=== PATIENT | male | born 1950 | race Caucasian/White ===

== ENCOUNTER 2016-12-18 07:01 | Inpatient (IN) | payer MEDICARE ==
--- NOTE | 2016-12-15 11:25 | HP ---
PREOPERATIVE HISTORY AND PHYSICAL: DATE OF ADMISSION: 12/18/16 PROVIDER: Ammon Monroy MD CHIEF COMPLAINT: Right knee pain. HISTORY OF PRESENT ILLNESS: Mr. Perkins is a 66-year-old male who has had more and more troubles with his right knee. He has very specific patellofemoral arthrosis, where he has [id number] changes in the lateral facet. He states that he tried physical therapy initially, which worked very well as did his activity modification; however, they slowly had become less effective. He has tried to continue with an exercise program; however, he is not seeing any improvement. He also had an injection, which did not give him very long lasting relief. Because he has failed conservative treatment, he is interested in surgical correction of the problem at this point. PAST MEDICAL HISTORY: 1. Hypertension. 2. Atrial fibrillation. 3. Pituitary adenoma. 4. Gout. 5. Sleep apnea. 6. History of stroke. PAST SURGICAL HISTORY: Inguinal hernia repair. He reports no complications of anesthesia with any of these procedures. CURRENT MEDICATIONS: 1. Metoprolol tartrate 25 mg 1 p.o. every day. 2. Cardizem 120 mg 2 by mouth every day. 3. Aldactone 25 mg 1 by mouth 3 times a week. 4. Levitra 20 mg 1 tab by mouth as needed. 5. Potassium chloride ER 20 mEq 1 p.o. every day. 6. Pravastatin 10 mg 1 p.o. every day. 7. Cabergoline 0.5 mg 1 tab twice weekly. 8. Multivitamin 1 p.o. every day. 9. Vitamin D 400 units by mouth every day. 10. Warfarin 5 mg one and half tabs 2 days a week, 1 tab the remaining days of the week as directed by primary care doctor. 11. Allopurinol 100 mg 2 tabs p.o. every day. ALLERGIES: PENICILLIN, LEVAQUIN, and other QUINOLONES. FAMILY HISTORY: Positive for heart disease, but no diabetes or cancer. SOCIAL HISTORY: The patient is . He is a retired rn teacher. He is a former smoker. He occasionally consumes alcohol and he does exercise regularly. REVIEW OF SYSTEMS: Constitutional: Negative for headaches, lightheadedness, fevers, chills, or recent hospitalizations. Cardiovascular: Positive for high blood pressure. No chest or arm pain with exertion. No history of heart attack. No heart murmur. Positive for heart palpitations due to atrial fibrillation. Respiratory: Negative for chronic cough, shortness of breath, asthma, or COPD. Gastrointestinal: Negative for heartburn, nausea, vomiting, diarrhea, constipation, or GERD. Genitourinary: Positive for nighttime urination. No frequency, urinary tract infections, or kidney problems. Musculoskeletal: Negative for chronic back pain or recent fractures. Skin: Negative for rashes, lesions, lumps, or sores. Neurologic: Negative for history of seizure. Positive for TIA. Negative for epilepsy, depression, or anxiety. Endocrine: Negative for diabetes or thyroid problems. Hematology: Positive for easy bleeding due to the warfarin. Negative for anemia or history of DVT. PHYSICAL EXAMINATION GENERAL: He is a well-developed, well-nourished, pleasant male, in no acute distress at rest. He is alert and oriented x3, with appropriate mood and affect. VITAL SIGNS: The patient is 6 feet tall, 235 pounds, blood pressure 139/84, and pulse of 82. HEENT: Normocephalic, atraumatic. Hearing and vision are grossly intact. NECK: Trachea is midline. RESPIRATORY: Lungs clear to auscultation bilaterally. No wheezes, rales or rhonchi. CARDIOVASCULAR: Regular rate and rhythm. No murmurs, rubs, or gallops. Normal S1, S2. ABDOMEN: Soft, nondistended, and nontender. Normal bowel sounds. EXTREMITIES: Exam of the right knee, skin is intact without abrasions or open wounds. He has a moderate joint effusion. He has full extension of the knee with pain; however, he is only able to flex to about 100 degrees before he has patellofemoral pain. He has stable varus and valgus stress test. He has a positive patellar grind. Sensation to light touch is intact distally. He has 2 + dorsalis pedis pulse. IMPRESSION: Right knee patellofemoral osteoarthritis. PLAN/RECOMMENDATIONS: The patient is to undergo right knee patellofemoral arthroplasty by Dr. Monroy on 12/18/16. The risks, benefits, and postoperative course were discussed with the patient at length and he would like to proceed. He was advised by his primary care doctor to withhold his Coumadin 5 days prior to surgery. He was given a prescription for Percocet for postoperative pain and we will restart his Coumadin postoperatively as well. All of his questions were answered to his full satisfaction. He is understanding to call if he develops any problems or concerns. We will follow up with the patient in the postoperative phase. DENEEN GUO [id number]/[facility] #: [id number] REENA
[~2016-12-18 07:01] MED LIST: Buffered Lidocaine 1% SYR 3ML* 3 ML/SYR SYRINGE INTRADERM ONE; Clindamycin 900 MG IVPREMIX(* 900 MG/50 ML SDV IV ONE; Famotidine IV* 10 MG/ML 2 ML (20 mg) IV ONE; Famotidine IV* 10 MG/ML 2 ML (20 mg) ONE; Metoclopramide TAB* 10 MG ONE; Metoclopramide TAB* 10 MG PO ONE
[2016-12-18] MEDS ORDERED: Bupivacaine 0.25% EPI 200,000* 30 ML SDV ONE (07:48)
[2016-12-18] MEDS ORDERED: Dexamethasone IV* 4 MG/ML 1 ML (4 MG) ONE (07:59)
[2016-12-18] MEDS ORDERED: ROPIVACAINE 5 MG/ML 30 ML BTL (0.5%) ONE (07:59)
[2016-12-18] MEDS ORDERED: Propofol* 10 MG/ML 20 ML BTL IV PUSH ONE (07:59)
[2016-12-18] MEDS ORDERED: Lidocaine 2% PF * 5 ML VIAL ONE (07:59)
[2016-12-18] MEDS ORDERED: Ketorolac INJ* 30 MG/ML 1 ML VIAL ONE (07:59)
[2016-12-18] MEDS ORDERED: Ondansetron INJ* 2 MG/ML VIAL ONE (07:59)
[2016-12-18] MEDS ORDERED: Phenylephrine INJ* 10 MG/ML 1 ML VIAL (10 MG) ONE (07:59)
[2016-12-18] MEDS ORDERED: Midazolam* 1 MG/ML 5 ML VIAL (5 MG) ONE (08:00)
[2016-12-18] MEDS ORDERED: fentaNYL* 50 MCG/ML 5 ML VIAL (250 MCG VIAL) ONE (08:00)
[2016-12-18] MEDS ORDERED: KETAMINE HCL* 50 MG/ML 10 ML VIAL ONE (08:00)
[2016-12-18] MEDS ORDERED: Ondansetron INJ* 2 MG/ML VIAL IV PRN ×2 (10:51→11:52)
[2016-12-18] MEDS ORDERED: HYDROmorphone INJ* 1 MG/ML CARPUJECT SYRINGE IV PRN (10:51)
[2016-12-18] MEDS ORDERED: HYDROmorphone INJ* 1 MG/ML CARPUJECT SYRINGE ONE (11:17)
[2016-12-18] MEDS ORDERED: Ondansetron TAB* 4 MG PO PRN (11:52)
[2016-12-18] MEDS ORDERED: Polyethylene Glycol 3350* 17 GM PACKET PO PRN (11:52)
[2016-12-18] MEDS ORDERED: Bisacodyl SUPP* 10 MG SUPP PR PRN (11:52)
[2016-12-18] MEDS ORDERED: oxyCODONE/Acetamin 5/325 MG* TAB PO PRN (11:52)
[2016-12-18] MEDS ORDERED: diPHENhydraMINE IV* 50 MG/ML 1 ml VIAL (BENADRYL) IV PRN (11:52)
[2016-12-18] MEDS ORDERED: Acetaminophen TAB* 325 MG PO PRN (11:52)
[2016-12-18] MEDS ORDERED: oxyCODONE TAB* 5 MG TAB PO PRN (11:52)
[2016-12-18] MEDS ORDERED: Cabergoline [Cabergoline] 0.5 MG PO SCH (12:00)
[2016-12-18] MEDS ORDERED: fentaNYL* 50 MCG/ML 2 ML VIAL (100 MCG VIAL) ONE (12:38)
[2016-12-18] MEDS: fentaNYL* 50 MCG/ML 2 ML VIAL (100 MCG VIAL) IV PRN ×2 (12:47→12:59)
--- NOTE | 2016-12-18 13:05 | RAD ---
INDICATION: Patellofemoral arthroplasty COMPARISON: Right knee September 23, 2015 TECHNIQUE: A portable 2 view examination was performed obtained. FINDINGS: There is patellofemoral arthroplasty. There is no evidence of hardware failure. There are soft tissue changes compatible with recent surgery to include a joint effusion and anterior skin charisse. IMPRESSION: POSTOPERATIVE PATELLOFEMORAL ARTHROPLASTY
[2016-12-18] MEDS: Morphine INJ* 4 MG/ML 1 ML CARPUJECT IV PRN ×2 (14:34→18:57)
[2016-12-18] MEDS ORDERED: Clindamycin 600 MG IVPREMIX(* 600 MG/50 ML SDV IV SCH (15:00)
[2016-12-18] MEDS: oxyCODONE/Acetamin 5/325 MG* TAB PO PRN ×2 (15:38→19:31)
[2016-12-18] MEDS ORDERED: Warfarin TAB(*) 10 MG PO ONE ×2 (17:00)
[2016-12-18] MEDS ORDERED: Warfarin TAB(*) 2.5 MG PO ONE (17:00)
[2016-12-18] MEDS ORDERED: CMCS - Pravastatin (NF) 20 MG TAB PO SCH (17:00)
[2016-12-18] MEDS: Clindamycin 600 MG IVPREMIX(* 600 MG/50 ML SDV IV SCH (17:47)
--- NOTE | 2016-12-18 17:54 | PN ---
Hospitalist Progress Note HOSPITALIST ADDENDUM Case reviewed and d/w Javier BROTHERS. Mr. Perkins is a 66yo M with PMH of Afib, TIA, PASQUALE, admitted for elective right TKA. With his h/o TIA, needs bridging with Lovenox as soon as Ortho deems it safe. We will continue to follow with you.
--- NOTE | 2016-12-18 21:23 | CONS ---
MEDICAL CONSULTATION NOTE: DATE OF CONSULT: 12/18/16 REQUESTING PROVIDER: Dr. Monroy. CONSULTING PROVIDER: DENEEN Saini. SUPERVISING PHYSICIAN: Callie Butt MD. PRIMARY CARE PROVIDER: Dr. Mckeon. CHIEF COMPLAINT: Status post right total knee replacement with request for hospitalist consult for medical comanagement. HISTORY OF PRESENT ILLNESS: This is a 66-year-old gentleman who underwent right total knee replacement by Dr. Monroy earlier today. He has a history of chronic atrial fibrillation, a stable prolactinoma, history of gout, prior TIA, obstructive sleep apnea with which he is compliant with CPAP, as well as chronic kidney disease. Due to his medical comorbidities, Dr. Monroy requested medical comanagement by hospitalist group. The patient was seen by his primary care provider, Dr. Mckeon, prior to surgery. He had a stress test last completed April 2015, which was listed as a low risk study. He is typically rate controlled with metoprolol and diltiazem and anticoagulated with Coumadin. His Coumadin has been held for several days prior to surgery and his INR was approximately 1 this morning. The patient states that he is generally quite active at baseline, has had no recent illnesses. Postoperatively, he is having some pain at the surgical site. He is denying any chest pain or difficulty breathing. There is no abdominal pain, nausea, or vomiting. PAST MEDICAL HISTORY: 1. Chronic atrial fibrillation, anticoagulated on Coumadin and rate controlled. 2. 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 3. History of gout, on allopurinol. 4. History of TIA. 5. Obstructive sleep apnea, compliant with CPAP. 6. Stage 3 chronic kidney disease. PAST SURGICAL HISTORY: Inguinal hernia repair. HOME MEDICATIONS: 1. Allopurinol 100 mg p.o. daily. 2. Cabergoline 0.5 mg twice weekly on Wednesdays and Sundays. 3. Vitamin D 400 units p.o. daily. 4. Diltiazem CD 240 mg p.o. daily. 5. Metoprolol succinate 25 mg p.o. daily. 6. Multivitamin 1 tablet p.o. daily. 7. Potassium chloride 20 mEq p.o. daily. 8. Pravastatin 10 mg p.o. daily. 9. Spironolactone 25 mg p.o. daily as needed. 10. Levitra 20 mg p.o. 1 hour prior to intercourse. 11. Coumadin 12.5 mg p.o. daily. FAMILY HISTORY: The patient's father had a history of hypertension and mother had a history of coronary disease. SOCIAL HISTORY: The patient is a semi-retired teacher. He lives at home with his . He is a former smoker, previously used pipe and quit about 15 years ago. REVIEW OF SYSTEMS: As listed above in HPI and otherwise negative. PHYSICAL EXAM: Most recent vitals: Temperature 97.9 degrees Fahrenheit, pulse 74 beats per minute, respiratory rate 16 per minute, oxygen saturation 96% on 2 L, and blood pressure 135/98 mmHg. General: This is a very pleasant gentleman lying comfortably in the recovery area who is in no acute distress. He is slightly groggy postoperatively but able to answer all history questions appropriately and is alert and conversant. HEENT: Head is normocephalic and atraumatic with moist mucous membranes. Respiratory: Lungs are clear to auscultation without wheezes, crackles or rhonchi. . Cardiovascular: Slightly irregular rhythm. No murmurs, rubs, or gallops appreciated. Abdomen: Abdomen is soft and nontender to palpation. Extremities: Right knee is in a postsurgical dressing. No significant edema appreciated in either leg. Psych: The patient is alert and appropriately oriented. LABORATORY DATA: Reviewed preop labs from 12/08/16, which include a CBC and comprehensive metabolic panel. Preoperatively, he had a white blood cell count of 13,100, hemoglobin of 16 g/dL, and platelet count of 273,000. His preop creatinine was 1.29 with an estimated GFR of approximately 55 and a BUN of 16. INR from earlier today was 1.01. IMAGING: Chest x-ray from 12/08/16 showed no acute process or significant chronic disease. Stress testing from April 2015 was read as a low risk study. Telemetry - the patient appears to be in rate controlled atrial fibrillation in the PACU with the rate between 60 and 70 beats per minute. ASSESSMENT AND PLAN: This is a 66-year-old gentleman with chronic atrial fibrillation, pituitary adenoma, history of prior transient ischemic attack, gout, obstructive sleep apnea, and chronic kidney disease, who underwent elective right total knee replacement by Dr. Monroy earlier today. Hospitalist group has been consulted for medical comanagement. 1. Status post right total knee replacement - the patient is postoperative day [address] Monroy. Discharge planning and pain control will be per orthopedic surgery group. 2. Chronic atrial fibrillation - the patient is appropriately rate controlled and states that he did take his metoprolol and diltiazem earlier this morning. He is currently asymptomatic. He is chronically anticoagulated on Coumadin, which has been held and his INR is 1 prior to surgery. Plan is to resume his Coumadin this evening and monitor his INR daily. The patient does not require Lovenox bridging at this time. 3. Obstructive sleep apnea - the patient did bring his CPAP machine with him and will use that during his hospital stay. 4. Pituitary adenoma - normal prolactin, last measured in April, maintained on cabergoline and followed by Dr. Varner with stable size via imaging. 5. History of transient ischemic attack. 6. Chronic kidney disease - stage 3. Preop creatinine of 1.29 - recommend avoiding nephrotoxic agents and more specifically NSAIDs postoperatively. A repeat basic metabolic panel is ordered for tomorrow. 7. History of gout. Discontinue allopurinol. 8. Code status. The patient is full code. 9. Healthcare proxy is listed as his . 10. DVT prophylaxis - the patient is chronically anticoagulated with Coumadin and his typical Coumadin dose will be resumed with close monitoring of his INR. Additional prophylactic measures not necessary at this time. DISPOSITION: Hospitalist group will continue to follow along throughout the patient's hospital stay. Discharge planning per Orthopedic Surgery. DENEEN SAINI [id number]/[facility]PS #: [id number] REENA
[2016-12-18] MEDS: Magnesium Hydroxide LIQ* 30 ML UDC PO SCH (21:30)
[2016-12-18] MEDS: Docusate CAP* 100 MG PO SCH (21:42)
[2016-12-19] MEDS: oxyCODONE/Acetamin 5/325 MG* TAB PO PRN ×3 (00:16→13:54)
--- NOTE | 2016-12-19 02:26 | OP ---
DATE OF OPERATION: 12/18/16 - ROOM #348 DATE OF : 50 SURGEON: Ammon Monroy MD ELECTRONIC ORGAN TECHNICIAN: Ann-Marie Waggoner RPA ANESTHESIOLOGIST: González iVrk MD ANESTHESIA: General. PRE-OP DIAGNOSIS: Osteoarthritis, right patellofemoral joint. POST-OP DIAGNOSIS: Osteoarthritis, right patellofemoral joint. OPERATIVE PROCEDURE: Right patellofemoral joint arthroplasty. ESTIMATED BLOOD LOSS: Negligible. COMPLICATIONS: None. HARDWARE: Devendra #4 femur 38 mm patella. INDICATIONS: Mr. Perkins is a 66-year-old male who has had continued troubles with pain and swelling in his right knee. He had been treated conservatively with antiinflammatories, injections, but still had very specific pain about the knee. He has now been on anticoagulation and because of that the knee has become more painful and more limiting. He also has had gouty episodes with the knee and this has only added to the pain and troubles to the knee. By x-ray, there was good maintenance of the weightbearing surface of the knee joint and he was bone on bone in the patellofemoral joint. He also related most of his symptoms to going up and downstairs as well as about the patella. I discussed with him that a patello-femoral arthroplasty should work well to decrease his pain and improve his function. Risks of surgery such as infection, scar formation, stiffness, DVTs, pulmonary embolism, hardware failure, continued pain and a need for a revision surgery were some of the risks discussed. He had been declared medically optimized and wished to proceed. DESCRIPTION OF PROCEDURE: The patient was brought to the OR and general anesthesia was established. Tourniquet was placed over the proximal right thigh and was used during the case. Total tourniquet time would be approximately 45 minutes. Right knee was prepped and then draped. Skin over the incisional layer was infiltrated using 20 cc of 0.25% Marcaine with epinephrine and an Esmarch was then used to exsanguinate the leg. Tourniquet was raised. Incision was made centered about the patella carried about 2 to 3 cm above the patella and down to the medial side of the tibial tubercle. Incision was carried down to the skin and subcutaneous tissues. Extensor mechanism was exposed and a sharp peripatellar arthrotomy was made. Gush of clear yellowish joint fluid was encountered. Extensive wear on the patellofemoral joint was seen and the weightbearing surface actually appeared in relatively good shape. Knee was pulse lavaged to clean out some of the chondrocalcinosis, which were gout crystals, which was present and patella was then measured. He had worn down on the inner side to about 14 mm and was about 25 mm on the medial side. Patella cut was taken levelling out the patella. Fat pads were sharply excised and care was taken not to damage the meniscus or cruciate ligaments. Attention was turned to the proximal femur. Knee was flexed up a little bit and step drill was used to open the femoral canal. Intramedullary guide was placed and the alignment guide was placed and adjusted until appeared parallel with the epicondyles and this was pinned into place. Cutting height was then adjusted using the Feeler guide until the guide sat nicely and I thought we would take a nice cut right over the top side of the femur and it did not notch. Guide was then fully pinned into place and the Feeler guide was removed. I came along the top of the cutting guide first to make sure that I liked the cut and I did and then I came through the guide and it appeared a nice cut was taken. Cutting guide was removed and the cut was sized in a 4 seemed to sit very nicely right over the top side of the femur. This was then pinned into place and then the mill was run to resect the bone. Second guide was then placed and drill holes were made. Knee was copiously pulse lavaged and trial was placed. Attention was turned to the patella. Patella was sized and a 38 sat very nicely. Holes were drilled and 38 trial was snapped into place. Patella tracked perfectly even without the trial in place and he no where had that horrible grind with flexing of the knee and straightening of the knee. The knee was copiously pulse lavaged. Cement was being prepared. Trial instrumentation was removed and the femur and patella were both cemented into place. Excess cement was removed and the cement was allowed to harden. Once the cement was hardened, the knee was again taken through a range of motion with a same wonderful motion and patellar stability. Parapatellar arthrotomy was closed using #1 Vicryl sutures and tourniquet was let down. No significant bleeding was encountered. Subcutaneous tissues were reapproximated using 2-0 Vicryl. Skin was closed using charisse. Sterile dressing was applied. The patient was then awoken in the OR and was stable on transfer to the recovery room. [id number]/[facility] #: [id number] REENA
[2016-12-19] MEDS: Clindamycin 600 MG IVPREMIX(* 600 MG/50 ML SDV IV SCH ×2 (02:28→10:16)
[2016-12-19 05:57] LABS: Hematocrit 41 % (42-52); Hemoglobin 13.6 g/dl (14.0-18.0)
[2016-12-19 06:14] LABS: BUN/Creatinine Ratio 18.8 (8-20); EGFR African American 69.2 (>60); EGFR Non-African American 53.8 (>60); Potassium 4.5 mmol/L (3.5-5.0)
--- NOTE | 2016-12-19 08:17 | PN ---
Progress Note - Progress Note SOAP: Subjective: []Patient seen at bedside. Doing very well. Denies significant knee pain. He was hoping that he would be able to go home this afternoon after PT. Objective: [] Vital Signs Temp 97.9 F 12/19/16 07:23 Pulse 78 12/19/16 07:23 Resp 16 12/19/16 07:39 BP 137/93 12/19/16 07:23 Pulse Ox 98 12/19/16 07:23 Intake & Output 12/18/16 12/19/16 12/19/16 18:59 06:59 18:59 Intake Total 2170 1855 Output Total 750 675 Balance 1420 1180 Weight 244 lb Intake: IV Fluids 2049 950 CLINDAMYCIN 900MG IV 50 LR 2000 950 IVPB 55 ABX - CLINDAMYCIN 55 Oral 120 850 Output: Urine 200 Reyna 750 475 Other: Estimated Blood Loss MINIMAL Comment Laboratory Results - last 24 hr 12/18/16 12/19/16 12/19/16 09:12 05:48 05:48 Hgb 13.6 L Hct 41 L INR (Anticoag Therapy) 1.01 1.10 Sodium Potassium Chloride Carbon Dioxide Anion Gap BUN Creatinine Est GFR ( Amer) Est GFR (Non-Af Amer) BUN/Creatinine Ratio Glucose Calcium 12/19/16 05:48 Hgb Hct INR (Anticoag Therapy) Sodium 129 L Potassium 4.5 Chloride 97 L Carbon Dioxide 24 Anion Gap 8 BUN 25 H Creatinine 1.33 H Est GFR ( Amer) 69.2 Est GFR (Non-Af Amer) 53.8 BUN/Creatinine Ratio 18.8 Glucose 131 H Calcium 9.0 Right knee dressings were reinforced last night, some serosangenous drainage noted on distal aspect of dressing calf non tender and soft, Elda's negative +DF/PF right foot neuro intact Assessment: []s/p Right patellofemoral knee replacement POD #1 Plan: []PT WBAT Coumadin w Heparin bridge Medicine following Will see how he does with PT today- possible discharge later today
[2016-12-19] MEDS ORDERED: Potassium Chlor TAB* 20 MEQ TAB.ER PO SCH (09:00)
[2016-12-19] MEDS ORDERED: Metoprolol Tartrate TAB* 25 MG PO SCH (09:00)
[2016-12-19] MEDS ORDERED: Allopurinol TAB* 100 MG PO SCH (09:00)
[2016-12-19] MEDS ORDERED: Diltiazem CD CAP* 240 MG PO SCH (09:00)
[2016-12-19] MEDS ORDERED: Metoprolol Succinate XL TAB* 25 MG PO SCH (09:00)
[2016-12-19] MEDS ORDERED: Vitamin THERAPEUTIC TAB PO SCH (09:00)
[2016-12-19] MEDS: Docusate CAP* 100 MG PO SCH (10:15)
[2016-12-19] MEDS: Magnesium Hydroxide LIQ* 30 ML UDC PO SCH (10:17)
[2016-12-19 11:41] VITALS: BP 124/79
[2016-12-19] MEDS ORDERED: Spironolactone TAB* 25 MG PO PRN (11:58)
--- NOTE | 2016-12-19 13:39 | PN ---
Progress Note - Progress Note Note: Patient has done very well in PT today and his pain remains well managed. He still would like to be discharged home this afternoon. After checking with Dr. Monroy, he gives his approval for his discharge. s/p patellofemoral repalcement right knee. Change dressing Discharge home today f/u [address] Monroy
[2016-12-19] MEDS ORDERED: Heparin VIAL(*) 5000 UNITS/ML VIAL (FIVE THOUSAND) SUBCUT SCH (14:30)
--- NOTE | 2016-12-20 03:58 | DS ---
DISCHARGE SUMMARY: DATE OF ADMISSION: 12/18/16 DATE OF DISCHARGE: 12/19/16 ATTENDING PHYSICIAN: Dr. Ammon Monroy. ADMISSION DIAGNOSIS: Patellofemoral arthritis, right knee. DISCHARGE DIAGNOSIS: Patellofemoral arthritis, right knee. SURGERY PERFORMED: Right knee patellofemoral arthroplasty. HOSPITAL COURSE: The patient is a 66-year-old male who has had ongoing problems with anterior right knee pain due to patellofemoral arthritis. He had developed bone on bone changes especially in the lateral facet patella and failed conservative measures including physical therapy and corticosteroid injections. Due to the fact that he failed conservative management and continued to have significant pain impacting his activities of daily living, he elected to proceed with surgical intervention. He was taken to the operating room under the care of Dr. Ammon Monroy on the date of 12/18/16 for the aforementioned procedure. He tolerated the procedure and left the operating room in stable condition. Postoperatively, he progressed satisfactorily with his physical therapy and occupational therapy goals bearing weight as tolerated on the right lower extremity. He had no postoperative complications. He was placed on heparin and Coumadin postoperatively. The patient's pain was well controlled and he mastered his physical therapy goals allowing him to return to his one-story home on the date of 12/19/16. CONDITION ON DISCHARGE: The patient is alert and oriented x3. His pain level is about 4 or 5, just completing a physical therapy session. His dressings were removed with a small amount of blood drainage noted on his dressings, Taras , 4x4s and Zeyad wrap applied. His neurovascular status is intact. His calf is soft and nontender. Homans sign is negative. MEDICATIONS: The patient will continue with his regular medications at home including his normal Coumadin regimen that he takes weekly. He states that his INR is checked roughly every 2 weeks and is scheduled to have an INR lab drawn this week. He also has Percocet prescription already at home that was called in prior to his surgery to use for pain. PLAN: Recommend a followup in roughly [address] Monroy. I recommend that he keep the wound clean and dry until his charisse are removed, then he may shower. If he has any problems or concerns, any noted redness drainage, increased pain, fever, chills, the office will be contacted prior to his scheduled appointment. DENEEN GARCIA [id number]/[facility] #: [id number] [facility] CAMPUSVidal
== END 2016-12-19 17:10 | disposition home health service (06) | DRG 517 ==
LOC: AA 07:01 → SSU 11:52
PROVIDERS: ADMIT Orthopaedic Surgery; ATTEND Orthopaedic Surgery
PROC: 0SUC09C Supplement Right Knee Joint with Liner, Patellar Surface, Open Approach (ICD-10-PCS; principal; 2016-12-18 09:00)
DX: M17.5 Other unilateral secondary osteoarthritis of knee (principal); I48.2 Chronic atrial fibrillation; N18.3 Chronic kidney disease, stage 3 (moderate); I12.9 Hypertensive chronic kidney disease with stage 1 through stage 4 chronic kidney disease, or unspecified chronic kidney disease; M10.9 Gout, unspecified; Z86.73 Personal history of transient ischemic attack (TIA), and cerebral infarction without residual deficits; Z88.0 Allergy status to penicillin; Z88.1 Allergy status to other antibiotic agents; Z88.8 Allergy status to other drugs, medicaments and biological substances; Z82.49 Family history of ischemic heart disease and other diseases of the circulatory system; Z87.891 Personal history of nicotine dependence; G47.33 Obstructive sleep apnea (adult) (pediatric); D35.2 Benign neoplasm of pituitary gland
CPT/HCPCS: 36415; 80048; 85014; 85018; 85610; 88305; 88311; 94760; A9270-GY; C1713; C1776; J1100; J1170; J1644; J1885; J2250; J2270; J2405; J2704; J2795; J3010

== ENCOUNTER 2019-06-03 08:49 | Day surgery (SDC) | payer MEDICARE ==
[~2019-06-03 08:49] MED LIST changes: +Acetaminophen TAB* 325 MG PO PRN; -Buffered Lidocaine 1% SYR 3ML* 3 ML/SYR SYRINGE INTRADERM ONE; +Buffered Lidocaine 1% SYRIN* 1 ML/SYRINGE INTRADERM ONE; -Clindamycin 900 MG IVPREMIX(* 900 MG/50 ML SDV IV ONE; -Famotidine IV* 10 MG/ML 2 ML (20 mg) IV ONE; -Famotidine IV* 10 MG/ML 2 ML (20 mg) ONE; -Metoclopramide TAB* 10 MG ONE; -Metoclopramide TAB* 10 MG PO ONE
[2019-06-03] MEDS ORDERED: Midazolam* 1 MG/ML 5 ML VIAL (5 MG) ONE (09:38)
[2019-06-03] MEDS ORDERED: fentaNYL* 50 MCG/ML 2 ML VIAL (100 MCG VIAL) ONE (09:38)
[2019-06-03 12:15] VITALS: BP 110/73
--- NOTE | 2019-06-03 12:25 | OP ---
DATE OF OPERATION: 06/03/19 - [facility] DATE OF : 50 SURGEON: Jayy Christine MD FENCE BUILDER: None. ANESTHESIA: Topical with intravenous sedation. PRE-OP DIAGNOSIS: Cataract of right eye with astigmatism. POST-OP DIAGNOSIS: Cataract of right eye with astigmatism. OPERATIVE PROCEDURE: Phacoemulsification and cataract extraction with posterior chamber toric intraocular lens implant, right eye. COMPLICATIONS: None. BLOOD LOSS: None. DESCRIPTION OF PROCEDURE: The patient was brought to the operating room and received intravenous sedation. A drop of tetracaine was placed in his right eye. The patient was prepped and draped in the usual sterile fashion for ophthalmic surgery and attention was directed to the right eye where a speculum was placed. A paracentesis was created at the 11 o'clock position. A 0.1 cc of 1% preservative-free lidocaine was injected into the anterior chamber followed by DisCoVisc. The eye was digitally stabilized while a 2.75-mm keratome was used to create a triplanar clear corneal incision. It was noted that the pupil had not dilated well despite appropriate preoperative eye drops. The pupil measured approximately 3.5 mm in diameter. Omidria was added to the irrigating solution. A continuous curvilinear capsulorrhexis was created using a cystotome and Utrata forceps measuring approximately 4 mm in diameter. BSS on a cannula was used to hydrodissect the lens from the capsule. Phacoemulsification was performed in a [id number] technique to create four fragments which were removed. Residual cortical material was removed with irrigation and aspiration. The capsular bag was polished. The capsule was filled with ProVisc. The surface of the eye was irrigated with balanced saline solution. The intraocular pressure was measured and found to be appropriate. The ORA device was employed. An [id number] 9.5 diopter lens was chosen. The reticle on the ORA guided the lens placement aligning the axis at approximately 90 degrees. Irrigation and aspiration were performed to remove viscoelastic from the eye. The lens remained at the appropriate axial alignment. BSS on a cannula was used to hydrate the corneal stroma and seal the wound. At the end of the case, the pupil was round and measured approximately 4 mm in diameter. The eye pressure appeared normal, the wound was water tight. The lens was centered, stable in axial line. The speculum was removed and topical Maxitrol ointment was placed on the surface of the eye. The eye was closed, patched, and shielded and the patient was sent to the Recovery Room in stable condition with postoperative instructions and follow-up appointment given. [id number]/[facility] #: [id number] MTDD
[2019-06-03] MEDS ORDERED: Phenylephr/Ketorolac 1%/0.3% OPH DROP BTL ONE (14:29)
[2019-06-03] MEDS ORDERED: Neomycin/Polymy/Dex OPHTH.OIN* 3.5 GM ONE (14:48)
[2019-06-03] MEDS ORDERED: Ketorolac 0.5% OPHTH (NF) 0.5 % 5 ML BTL ONE (14:48)
[2019-06-03] MEDS ORDERED: Lidocaine 1% MPF ** 5 ML VIAL ONE (14:48)
[2019-06-03] MEDS ORDERED: Phenylephrine OPHTH SOL 2.5%* 2 ML ONE (14:48)
[2019-06-03] MEDS ORDERED: Tropicamide 1% OPTH.SOL* BTL ONE (14:48)
[2019-06-03] MEDS ORDERED: Tetracaine 0.5% OPTH.SOL 4 ML* 1 DROP BTL ONE (14:48)
[2019-06-03] MEDS ORDERED: Cyclopentolate 1% OPTH.SOL* 2 ML BTL ONE (14:48)
== END 2019-06-03 11:28 | disposition home or self-care (01) ==
LOC: OREAST 08:49
PROVIDERS: ATTEND Ophthalmology
DX: H25.13 Age-related nuclear cataract, bilateral (principal); H25.033 Anterior subcapsular polar age-related cataract, bilateral; M79.7 Fibromyalgia; I10 Essential (primary) hypertension; M10.9 Gout, unspecified; D35.2 Benign neoplasm of pituitary gland; E22.1 Hyperprolactinemia; Z88.0 Allergy status to penicillin; Z88.8 Allergy status to other drugs, medicaments and biological substances; I48.2 Chronic atrial fibrillation; G47.30 Sleep apnea, unspecified; M79.671 Pain in right foot
CPT/HCPCS: A9270-GY; C9447; J2250; J3010; V2787

== ENCOUNTER 2019-06-10 10:17 | Day surgery (SDC) | payer MEDICARE ==
[2019-06-10] MEDS ORDERED: Midazolam* 1 MG/ML 5 ML VIAL (5 MG) ONE (12:20)
[2019-06-10] MEDS ORDERED: fentaNYL* 50 MCG/ML 2 ML VIAL (100 MCG VIAL) ONE (12:20)
[2019-06-10 13:34] VITALS: BP 100/61
[2019-06-10] MEDS ORDERED: Phenylephrine OPHTH SOL 2.5%* 2 ML ONE (14:02)
[2019-06-10] MEDS ORDERED: Neomycin/Polymy/Dex OPHTH.OIN* 3.5 GM ONE (14:02)
[2019-06-10] MEDS ORDERED: Tetracaine 0.5% OPTH.SOL 4 ML* 1 DROP BTL ONE (14:02)
[2019-06-10] MEDS ORDERED: Ketorolac 0.5% OPHTH (NF) 0.5 % 5 ML BTL ONE (14:02)
[2019-06-10] MEDS ORDERED: Lidocaine 1% MPF ** 5 ML VIAL ONE (14:02)
[2019-06-10] MEDS ORDERED: Cyclopentolate 1% OPTH.SOL* 2 ML BTL ONE (14:02)
[2019-06-10] MEDS ORDERED: Tropicamide 1% OPTH.SOL* BTL ONE (14:02)
[2019-06-10] MEDS ORDERED: Phenylephr/Ketorolac 1%/0.3% OPH DROP BTL ONE (14:49)
--- NOTE | 2019-06-10 15:40 | OP ---
OPERATIVE REPORT: DATE OF OPERATION: 06/10/19 [facility] DATE OF : 50 SURGEON: Jayy Christine MD PAPER CARRIER: None. ANESTHESIA: Topical with intravenous sedation. PRE-OP DIAGNOSIS: Cataract with astigmatism, left eye. POST-OP DIAGNOSIS: Cataract with astigmatism, left eye. OPERATIVE PROCEDURE: Phacoemulsification and cataract extraction with posterior chamber toric intraocular lens implant, left eye. COMPLICATIONS: None. BLOOD LOSS: None. DESCRIPTION OF PROCEDURE: The patient was brought to the operating room and given intravenous sedation. A drop of tetracaine was placed in his left eye. The patient was prepped and draped in the usual sterile fashion for ophthalmic surgery and attention was directed to the left eye where a speculum was placed. A paracentesis was created at the 5 o'clock position and 0.1 cc of 1% preservative- free lidocaine was injected into the anterior chamber followed by DisCoVisc. The eye was digitally stabilized while a 2.75-mm keratome was used to create a triplanar clear corneal incision at the 3 o'clock position. A continuous curvilinear capsulorrhexis was created with a cystotome and Utrata forceps. BSS on a cannula was used to hydrodissect the lens from the capsule. Phacoemulsification was performed in a xwuorb-[id number] technique to create 4 fragments, which were removed. Residual cortical material was removed with irrigation and aspiration. The capsular bag was polished. The anterior chamber and capsular bag were inflated with Provisc. The eye pressure was checked and found to be appropriate for the ORA device. The surface of the eye was lubricated with BSS. The ORA device was employed to guide the lens choice. An SN6AT3 8.0 diopter lens was chosen. The lens was folded and inserted into the capsular bag. The lens was dialed to the 120- degree axis as per the reticle on the ORA. A Sinskey hook was used to stabilize the lens while irrigation and aspiration were performed to remove viscoelastic from the eye. BSS on a cannula was used to hydrate the corneal stoma and seal the wound. At the end of the case, the pupil was round. The lens was centered, stable and axially aligned. The eye pressure was normal and the wound was watertight. The speculum was removed and topical Maxitrol ointment was placed on the surface of the eye. The eye was closed, patched, and shielded and the patient was sent to the recovery room in stable condition with postoperative instructions and followup appointment given. [id number]/[facility] #: [id number] REENA
== END 2019-06-10 13:32 | disposition home or self-care (01) ==
LOC: OREAST 10:17
PROVIDERS: ATTEND Ophthalmology
DX: H25.032 Anterior subcapsular polar age-related cataract, left eye (principal); H52.202 Unspecified astigmatism, left eye; I10 Essential (primary) hypertension; M79.7 Fibromyalgia; M10.9 Gout, unspecified; E22.1 Hyperprolactinemia; G47.33 Obstructive sleep apnea (adult) (pediatric); Z86.73 Personal history of transient ischemic attack (TIA), and cerebral infarction without residual deficits; I48.91 Unspecified atrial fibrillation; Z79.01 Long term (current) use of anticoagulants
CPT/HCPCS: A9270-GY; C9447; J2250; J3010; V2787

== ENCOUNTER 2023-06-18 08:07 | Observation (INO) ==
[2023-06-18 08:37] LABS: ABS Basophils 0.1 10^3/uL (0.0-0.1); ABS Eosinophils 0.5 10^3/uL (0.0-0.5); ABS Lymphocytes 3.3 10^3/uL (1.0-4.8); ABS Monocytes 0.8 10^3/uL (0.0-1.1); ABS Neutrophils 4.8 10^3/uL (1.5-7.6); ABS Nucleated RBC 0.01 10^3/ul; Eosinophil % 5.5 %; Hematocrit 45.4 % (38-53); Hemoglobin 15.8 g/dL (13.2-16.3); Lymphocyte % 34.6 %; Mean Corpuscular Hemoglobin 35.6 pg (27-33); Mean Corpuscular Hgb Conc 34.8 g/dL (31-36); Mean Corpuscular Volume 102.1 fL (80-97); Mean Platelet Volume 7.4 fL (7.5-11.2); Nucleated Red Blood Cells % 0.1 /100 WBC (0.0-0.4); Platelet Count 236 10^3/uL (150-450); Red Blood Count 4.45 10^6/uL (4.06-5.63); Red Cell Distribution Width 13.6 % (12-17); White Blood Count 9.6 10^3/uL (3.6-10.2)
[2023-06-18 08:40] LABS: INR 1.52 (0.83-1.13)
[2023-06-18 08:53] LABS: Albumin 4.2 g/dL (3.2-5.2); Calcium 9.3 mg/dL (8.6-10.3); Creatinine, Serum 1.31 mg/dL (0.67-1.17); Potassium 4.5 mmol/L (3.5-5.0); Total Protein 7.3 g/dL (6.4-8.9); eGFR CKD-EPI 57.5 (>60)
[2023-06-18 08:54] LABS: Albumin/Globulin Ratio 1.4 (1-3); Globulin 3.1 g/dL (2-4); Total Bilirubin 0.7 mg/dL (0.2-1.0)
[2023-06-18 10:06] LABS: High Sensitivity Troponin 1 Hr 5 pg/mL (<20)
[2023-06-18] MEDS ORDERED: Nitro 2% OINT (Nitroglycerin) 1 INCH/PAK TOPICAL ONE (12:11)
[2023-06-18 12:15] LABS: Activated Partial Thrombo Time 35.2 seconds (26.0-38.0)
[2023-06-18] MEDS ORDERED: Ondansetron 4 mg VIAL 2 MG/ML 2 ml VIAL IV PRN (12:29)
[2023-06-18] MEDS ORDERED: Sulfur Hexaflouride MICROSPHR 25 MG VIAL ONE (13:23)
[2023-06-18 14:50] LABS: High Sensitivity Troponin 1 Hr 5 pg/mL (<20)
[2023-06-18 16:55] LABS: High Sensitivity Troponin 3 Hr 5 pg/mL (<20)
[2023-06-19] MEDS ORDERED: NS 0.9% 1000 ml BAG 1,000 ML IV SCH (06:00)
[2023-06-19 06:30] LABS: ABS Basophils 0.1 10^3/uL (0.0-0.1); ABS Eosinophils 0.6 10^3/uL (0.0-0.5); ABS Lymphocytes 4.1 10^3/uL (1.0-4.8); ABS Monocytes 0.9 10^3/uL (0.0-1.1); ABS Nucleated RBC 0.01 10^3/ul; Eosinophil % 5.5 %; Hematocrit 47.8 % (38-53); Hemoglobin 16.4 g/dL (13.2-16.3); Lymphocyte % 38.7 %; Mean Corpuscular Hemoglobin 35.2 pg (27-33); Mean Corpuscular Hgb Conc 34.3 g/dL (31-36); Mean Corpuscular Volume 102.4 fL (80-97); Mean Platelet Volume 7.4 fL (7.5-11.2); Nucleated Red Blood Cells % 0.1 /100 WBC (0.0-0.4); Platelet Count 234 10^3/uL (150-450); Red Blood Count 4.67 10^6/uL (4.06-5.63); Red Cell Distribution Width 13.6 % (12-17); White Blood Count 10.6 10^3/uL (3.6-10.2)
[2023-06-19 06:45] LABS: Calcium 9.4 mg/dL (8.6-10.3); Creatinine, Serum 1.25 mg/dL (0.67-1.17); Magnesium 1.9 mg/dL (1.9-2.7); Potassium 4.2 mmol/L (3.5-5.0); eGFR CKD-EPI 60.8 (>60)
[2023-06-19] MEDS ORDERED: Lidocaine 1% VIAL 10 MG/ML 30 ML VIAL ONE (08:16)
[2023-06-19] MEDS ORDERED: VERAPAMIL 2.5 MG/ML 2 ML VIAL ** 5 mg/2 ml ONE (08:16)
[2023-06-19] MEDS ORDERED: Heparin 1,000 UNIT/ML 10 ml (10,000 UNITS) CATHLAB/DIALYSIS ONE ×2 (08:16→09:40)
[2023-06-19] MEDS ORDERED: nitroGLYCERIN DRIP 25,000 MCG/250 ML BTL ONE (08:16)
[2023-06-19] MEDS ORDERED: Iohexol 350 (CONTRAST) 100 ML PAK IV ONE ×2 (08:17→09:24)
[2023-06-19] MEDS ORDERED: fentaNYL 100 mcg/2 ml 50 MCG/ML VIAL ONE (08:17)
[2023-06-19] MEDS ORDERED: Midazolam 5 mg/5 ml VIAL 1 mg/ml 5 ml VIAL (5 mg) ONE (08:17)
[2023-06-19] MEDS ORDERED: Heparin 2 UNITS/ML IVPREMIX 3,000 UNIT/1,500 ML BAG IV ONE (08:18)
[2023-06-19] MEDS ORDERED: Magnesium Sulfate IV 1GM/100ML 1 GM/100 ML BAG IV ONE (09:00)
[2023-06-19 11:23] LABS: HDL Cholesterol 37.9 mg/dL
[2023-06-19 16:21] VITALS: BP 149/90
[2023-06-21] MEDS ORDERED: CABERGOLINE 0.5 MG PO SCH (09:00)
== END 2023-06-19 16:45 | disposition home or self-care (01) ==
LOC: ED 08:07 → INTOOBSV 12:49 → EDHOLD 12:49 → MEDTELE 15:17
PROVIDERS: ADMIT Internal Medicine; ATTEND Internal Medicine